=== PATIENT | female | born 1960 | race African-American/Black ===

== ENCOUNTER 2018-06-24 20:02 | Inpatient (IN) | payer MEDICARE, OTHER ==
[~2018-06-24] VITALS: Ht 154.9 cm; Wt 56.7 kg
--- NOTE | 2018-06-24 20:52 | NUR ---
PT PRESENTING TO ED WITH C/O KNEE PAIN S/P LT KNEE REPLACEMENT 3 DAYS PRIOR AT [facility]. PT IN BED. PT AAOX4. PT IS CALM AND COOPERATIVE. PT'S LUNG SOUNDS ARE CLEAR. PT'S BREATH SOUNDS ARE EVEN AND UNLABORED. B/S PRESENT IN ALL 4 QUADRANTS. PT'S CAP REFILLS ARE <3 SECS IN ALL FOUR EXTREMITIES. PT'S VISITOR AT BEDSIDE. PT IS POSITIONED FOR COMFORT W/ BED IN LOWEST POSITION W/ SIDERAILS UP. NO SIGNS OF DISTRESS WITNESSED AT THIS TIME.
[2018-06-24 21:17] LABS: BASOPHILS % (AUTO) 0.5 % (0.0-2.0); EOSINOPHILS # (AUTO) 0.1 K/uL (0.0-0.7); EOSINOPHILS % (AUTO) 0.9 % (0.0-7.0); HEMATOCRIT 27.2 % (31.2-41.9); LYMPHOCYTES # (AUTO) 2.3 K/uL (20.0-40.0); LYMPHOCYTES % (AUTO) 30.6 % (20.5-51.5); MEAN CORPUSCULAR HEMOGLOBIN 26.3 uug (24.7-32.8); MEAN CORPUSCULAR HGB CONC 33 g/dL (32.3-35.6); MEAN CORPUSCULAR VOLUME 79.8 fL (75.5-95.3); MONOCYTES # (AUTO) 0.4 K/uL (2.0-10.0); MONOCYTES % (AUTO) 5.6 % (0.0-11.0); NEUTROPHILS # (AUTO) 4.6 K/uL (1.8-8.9); NEUTROPHILS % (AUTO) 62.4 % (38.5-71.5); PLATELET COUNT (AUTO) 178 K/uL (179-408); RED BLOOD CELL COUNT(AUTO) 3.41 MIL/uL (3.63-4.92); WHITE BLOOD COUNT (AUTO) 7.4 K/uL (3.8-11.8)
[2018-06-24 21:19] LABS: CREATININE 0.7 mg/dL (0.6-1.3); POTASSIUM 3.6 mmol/L (3.5-5.1)
[2018-06-24 21:24] LABS: BILIRUBIN,DIRECT 0.1 mg/dL (0.0-0.2); BILIRUBIN,TOTAL 0.2 mg/dL (0.2-1.0); TOTAL PROTEIN, SERUM 7.1 g/dL (6.4-8.2)
[2018-06-24] MEDS ORDERED: VANCOMYCIN IV 1,000 MG in IV DEXTROSE 5% 250 ML IV ONE (21:30)
[2018-06-24] MEDS ORDERED: OXYCODONE/APAP 5-325 MG TABLET PO ONE (21:30)
[2018-06-24] MEDS ORDERED: POTA20PA3 PO (21:36)
[2018-06-24] MEDS ORDERED: LUBI24CA5 PO (21:36)
[2018-06-24] MEDS ORDERED: AMLO5TAB7 PO (21:36)
[2018-06-24] MEDS ORDERED: CARI350T PO (21:36)
[2018-06-24] MEDS ORDERED: LEVO40CA PO (21:36)
[2018-06-24] MEDS ORDERED: [UNRECOGNIZED DRUG - CODE] PO (21:36)
[2018-06-24] MEDS ORDERED: CYAN10009 PO (21:36)
[2018-06-24] MEDS ORDERED: OMEP40CA37 PO (21:36)
[2018-06-24] MEDS ORDERED: ZOLP10TA6 PO (21:36)
[2018-06-24] MEDS ORDERED: DIAZ10TA4 PO (21:36)
[2018-06-24] MEDS ORDERED: FLUT9.9S16 NS (21:36)
[2018-06-24] MEDS ORDERED: HYDR-4077 PO (21:36)
[2018-06-24] MEDS ORDERED: METH10TA2 PO (21:36)
[2018-06-24] MEDS ORDERED: LOSA100T15 PO (21:36)
[2018-06-24] MEDS ORDERED: ATOR40TA PO (21:36)
[2018-06-24] MEDS ORDERED: ONDA8TAB9 PO (21:36)
[2018-06-24] MEDS ORDERED: CELE200C PO (21:36)
[2018-06-24] MEDS ORDERED: APIX5TAB PO (21:36)
[2018-06-24] MEDS ORDERED: FURO-151 PO (21:36)
[2018-06-24] MEDS ORDERED: VANCOMYCIN IV 200 ML ONE (21:43)
[2018-06-24] MEDS ORDERED: OXYCODONE/APAP 5-325 MG TABLET ONE (21:43)
[2018-06-24] MEDS ORDERED: TEMAZEPAM 15 MG CAPSULE PO PRN (21:45)
[2018-06-24] MEDS ORDERED: HYDROMORPHONE 1 MG/1 ML DISP.SYRIN IV PRN (21:45)
[2018-06-24] MEDS ORDERED: ONDANSETRON 4 MG/2 ML VIAL IV PRN (21:45)
[2018-06-24] MEDS ORDERED: MAGNESIUM HYDROXIDE 30 ML LIQUID UDC PO PRN (21:45)
--- NOTE | 2018-06-24 22:01 | NUR ---
US TECH AT BEDSIDE
--- NOTE | 2018-06-24 22:10 | NUR ---
REPORT GIVEN TO [facility] NURSE, SHANDRA
--- NOTE | 2018-06-24 22:32 | NUR ---
DVT RULED OUT BY MD AFTER US
[2018-06-24] MEDS ORDERED: CEPHALEXIN MONOHYDRATE 500 MG CAPSULE ONE (22:39)
[2018-06-24] MEDS ORDERED: diphenhydrAMINE 50 MG/1 ML VIAL IV PRN (23:00)
[2018-06-24] MEDS ORDERED: diphenhydrAMINE 50 MG/1 ML VIAL ONE (23:05)
--- NOTE | 2018-06-24 23:10 | NUR ---
Pt. admitted to [facility], under care of Dr. MARTINEZ Belongs List completed
--- NOTE | 2018-06-24 23:15 | NUR ---
RECEIVED PATIENT VIA GURNEY FROM ER. PATIENT IS A/O X4. C/O PAIN UPON ARRIVAL TO FLOOR, STATING PERCOCET GIVEN IN ER WAS INEFFECTIVE. PATIENT IS S/P LEFT KNEE SURGERY THAT WAS DONE AT ANOTHER HOSPITAL 3 DAYS AGO. PATIENT HAS ROBERTO CARLOS AND DRESSING NOTED TO LEFT KNEE. SWELLING AND REDNESS NOTED TO LEFT LOWER EXTREMITY. PEDAL PULSE PRESENT AND NEUROVASCULAR CHECKS WNL. DRESSING REMOVED AND PICTURES TAKEN ON ADMISSION. DRY, STERILE DRESSING RE-APPLIED. VS WNL. HEPLOCK INTACT AND PATENT, NOTED TO RIGHT HAND #[id number] GAUGE. ORIENTED TO ROOM AND CALL LIGHT. CALL LIGHT IN REACH. ALL NEEDS ATTENDED. WILL CONTINUE TO MONITOR AND ASSESS.
[2018-06-24 23:25] VITALS: BP 127/74
[2018-06-24] MEDS: HYDROMORPHONE 2 MG/1 ML DISP.SYRIN IV PRN (23:35)
--- NOTE | 2018-06-24 23:35 | NUR ---
PATIENT GIVEN DILAUDID 1MG IV PER MAJOR CASE DETECTIVE. VS WNL. WILL CONTINUE TO MONITOR AND ASSESS.
[2018-06-24 23:42] LABS: *BILIRUBIN,URIN NEGATIVE (NEGATIVE); *BLOOD, URINE 1+ (NEGATIVE); *CLARITY,URINE CLEAR (CLEAR); *COLOR,URINE YELLOW (YELLOW); *KETONES,URINE NEGATIVE (NEGATIVE); *PROTEIN,URINE NEGATIVE (NEGATIVE); *UROBILINOGEN,URINE 0.2 E.U./dl (NORMAL); LEUKOCYTE ESTERASE ,URINE NEGATIVE (NEGATIVE); NITRITE, URINE NEGATIVE (NEGATIVE); UGLUCOSE NEGATIVE (NEGATIVE)
[2018-06-24 23:56] LABS: BACTERIA,URINE NONE SEEN /HPF (NONE SEEN); SQUAMOUS EPITHELIAL CELL,UR MODERATE /HPF (NONE SEEN); WBC,URINE 0-3 /HPF (0-3)
--- NOTE | 2018-06-25 00:10 | NUR ---
PATIENT RESTING IN BED. DENIES PAIN. DILAUDID EFFECTIVE. CALL LIGHT IN REACH. ALL NEEDS ATTENDED. ALL NEEDS ATTENDED. WILL CONTINUE TO MONITOR.
[2018-06-25 04:35] VITALS: BP 116/69
--- NOTE | 2018-06-25 05:05 | NUR ---
PATIENT AWAKE IN BED, C/O PAIN IN LEFT KNEE. PATIENT GIVEN DILAUDID 1MG IV PER TERRAZZO WORKER HELPER FOR PAIN. WILL CONTINUE TO MONITOR AND ASSESS.
[2018-06-25] MEDS: HYDROMORPHONE 2 MG/1 ML DISP.SYRIN IV PRN ×5 (05:06→19:07)
[2018-06-25 06:23] LABS: BASOPHILS % (AUTO) 0.6 % (0.0-2.0); EOSINOPHILS # (AUTO) 0.2 K/uL (0.0-0.7); HEMATOCRIT 22.6 % (31.2-41.9); HEMOGLOBIN 7.6 g/dL (10.9-14.3); LYMPHOCYTES # (AUTO) 2.7 K/uL (20.0-40.0); LYMPHOCYTES % (AUTO) 50.2 % (20.5-51.5); MEAN CORPUSCULAR HGB CONC 33 g/dL (32.3-35.6); MONOCYTES # (AUTO) 0.4 K/uL (2.0-10.0); MONOCYTES % (AUTO) 7.2 % (0.0-11.0); NEUTROPHILS # (AUTO) 2.1 K/uL (1.8-8.9); PLATELET COUNT (AUTO) 162 K/uL (179-408); RED BLOOD CELL COUNT(AUTO) 2.79 MIL/uL (3.63-4.92); WHITE BLOOD COUNT (AUTO) 5.3 K/uL (3.8-11.8)
[2018-06-25 06:34] LABS: BILIRUBIN,TOTAL 0.1 mg/dL (0.2-1.0); CREATININE 0.7 mg/dL (0.6-1.3); MAGNESIUM 1.8 mg/dL (1.8-2.4); POTASSIUM 3.3 mmol/L (3.5-5.1)
--- NOTE | 2018-06-25 06:44 | NUR ---
PATIENT AWAKE IN BED. SLEPT AT INTERVALS. DENIES PAIN. DRESSING INTACT. CALL LIGHT IN REACH. ALL NEEDS ATTENDED. WILL CONTINUE TO MONITOR AND ASSESS.
[2018-06-25 06:49] LABS: THYROID STIMULATING HORMONE 0.482 mIU/mL (0.358-3.740)
[2018-06-25] MEDS ORDERED: PANTOPRAZOLE SODIUM 40 MG TABLET.DR PO SCH (07:00)
[2018-06-25] MEDS: ACETAMINOPHEN 325 MG TABLET PO PRN (09:21)
[2018-06-25] MEDS ORDERED: POTASSIUM CHLORIDE 20 MEQ TAB.PRT.SR PO ONE (10:15)
[2018-06-25] MEDS: FERROUS SULFATE 325 MG TABEC PO SCH (10:24)
[2018-06-25 11:14] VITALS: BP 118/72
[2018-06-25 11:23] LABS: HEMATOCRIT 23.2 % (31.2-41.9); HEMOGLOBIN 7.8 g/dL (10.9-14.3)
[2018-06-25] MEDS ORDERED: APIXABAN 5 MG TABLET PO ONE (12:45)
--- NOTE | 2018-06-25 14:43 | NUR ---
CLINICAL PHARMACY NOTE: VANCOMYCIN PHARMACY TO DOSE Subjective: To start vancomycin in this 58 y/o female for indication of "suspected infection." Patient admitted with post-op swelling in leg after left knee replacement Objective: weight 56 kg height 154cm BUN 7 Scr 0.7 Wbc 5.3 temp 98 Assessment/Plan As renal function appears to be stable, will start regimen of vanco 750mg q14h for estimated trough of 16.9. First dose today at 1530. Will order trough before 4th scheduled dose (not ordered yet). Will dose per level if renal function were to change/become instable. Will follow
[2018-06-25 15:38] VITALS: BP 127/73
[2018-06-25] MEDS ORDERED: APIXABAN 5 MG TABLET PO SCH (16:00)
[2018-06-25] MEDS: VANCOMYCIN IV 750 MG in IV DEXTROSE 5% 250 ML IV SCH (16:12)
[2018-06-25 19:09] LABS: HEMOGLOBIN 8.2 g/dL (10.9-14.3)
[2018-06-25 20:19] VITALS: BP 132/76
--- NOTE | 2018-06-25 20:30 | NUR ---
PATIENT NOTED AMBULATING AROUND THE HALLWAY,AAOX4 . STEADY OF GAIT . NO DISTRESS NOTED BREATHING EVEN AND UNLABORED .
--- NOTE | 2018-06-25 21:15 | NUR ---
PATIENT ESCORTED BY SECURITY FOUND PATIENT DOWNSTAIRS IN THE LOADING /DOCK AREA ,SMOKING AREA.PATIENT ABLE TO AMBULATE WALKS SLOW BUT STEADY OF GAIT .BACK TO HER ROOM . EDUCATED /ADVISED PATIENT NOT TO GO DOWNSTAIR FOR SAFETY REASONS AND THAT THIS IS A NON SMOKING FACILITY TALK TO PATIENT SUGGEST ABOUT NICOTINE PATCH BUT SHE SAID IT DOESN'T WORK ,BUT WANTS VALIUM INSTEAD FOR HER ANXIETY .CALL LIGHT PLACED WITH IN REACH AND ADVISED TO CALL FOR ASSISTANCE AND NOT TO GO DOWNSTAIRS .PATIENT NOD HEAD AND VERBALIZED UNDERSTANDING .
[2018-06-25] MEDS: METHADONE HCL 10 MG TABLET PO SCH (21:59)
[2018-06-25] MEDS: AMLODIPINE 5 MG TABLET PO SCH (22:00)
--- NOTE | 2018-06-25 22:00 | NUR ---
REQUESTED FOR APPLESAUCE GIVEN ,TOLERATED ABLE TO FEED SELF.
[2018-06-25] MEDS: ZOLPIDEM 5 MG TABLET PO SCH (22:01)
[2018-06-25] MEDS: DIAZEPAM 10 MG TABLET PO PRN (23:18)
--- NOTE | 2018-06-26 00:15 | NUR ---
ESCORTED TO THE BATHROOM VOIDED . WOUND DRESSING DONE TO HER LEFT KNEE ,CLEANSE WITH NS PAT DRY AND PAINTED WITH BETADINE PLACE NON ADHERENT DRESSING COVER WITH TRANSPARENT DRESSING
[2018-06-26 03:25] LABS: HEMATOCRIT 26.2 % (31.2-41.9); HEMOGLOBIN 8.6 g/dL (10.9-14.3)
[2018-06-26] MEDS: VANCOMYCIN IV 750 MG in IV DEXTROSE 5% 250 ML IV SCH ×2 (04:43→20:00)
[2018-06-26 04:59] VITALS: BP 125/72
[2018-06-26] MEDS: HYDROMORPHONE 2 MG/1 ML DISP.SYRIN IV PRN ×5 (05:54→18:27)
--- NOTE | 2018-06-26 05:54 | NUR ---
PRN PAIN MEDICATION GIVEN PER REQUEST . FOR LEFT KNEE PAIN .SEE EMAR . EELVATED LEFT LEG WITH PILLOW .
[2018-06-26] MEDS: diphenhydrAMINE 25 MG CAP PO PRN ×2 (06:27→23:12)
--- NOTE | 2018-06-26 06:30 | NUR ---
PATIENT SLEPT ON AND OFF .ESCORTED PRN TO THE BATHROOM .
[2018-06-26 06:32] VITALS: BP 124/72
[2018-06-26 06:34] LABS: BASOPHILS % (AUTO) 0.6 % (0.0-2.0); EOSINOPHILS # (AUTO) 0.2 K/uL (0.0-0.7); EOSINOPHILS % (AUTO) 2.9 % (0.0-7.0); HEMATOCRIT 25.4 % (31.2-41.9); HEMOGLOBIN 8.5 g/dL (10.9-14.3); LYMPHOCYTES # (AUTO) 2.8 K/uL (20.0-40.0); LYMPHOCYTES % (AUTO) 44.2 % (20.5-51.5); MEAN CORPUSCULAR HEMOGLOBIN 27.2 uug (24.7-32.8); MEAN CORPUSCULAR HGB CONC 33 g/dL (32.3-35.6); MEAN CORPUSCULAR VOLUME 81.4 fL (75.5-95.3); MONOCYTES # (AUTO) 0.5 K/uL (2.0-10.0); MONOCYTES % (AUTO) 7.2 % (0.0-11.0); NEUTROPHILS # (AUTO) 2.9 K/uL (1.8-8.9); NEUTROPHILS % (AUTO) 45.1 % (38.5-71.5); PLATELET COUNT (AUTO) 197 K/uL (179-408); RED BLOOD CELL COUNT(AUTO) 3.11 MIL/uL (3.63-4.92); WHITE BLOOD COUNT (AUTO) 6.4 K/uL (3.8-11.8)
[2018-06-26 06:56] LABS: BILIRUBIN,TOTAL 0.2 mg/dL (0.2-1.0); CREATININE 0.6 mg/dL (0.6-1.3); MAGNESIUM 1.8 mg/dL (1.8-2.4); PHOSPHOROUS 3.8 mg/dL (2.5-4.9); POTASSIUM 3.9 mmol/L (3.5-5.1); TOTAL PROTEIN, SERUM 6.2 g/dL (6.4-8.2)
[2018-06-26 07:13] LABS: THYROID STIMULATING HORMONE 0.424 mIU/mL (0.358-3.740)
[2018-06-26] MEDS: PANTOPRAZOLE SODIUM 40 MG VIAL IV SCH (08:46)
[2018-06-26] MEDS: METHADONE HCL 10 MG TABLET PO SCH ×2 (08:46→21:39)
[2018-06-26] MEDS: FUROSEMIDE 40 MG TABLET PO SCH (08:47)
[2018-06-26] MEDS: CARISOPRODOL 350 MG TABLET PO SCH (08:47)
[2018-06-26] MEDS: POTASSIUM CHLORIDE 20 MEQ POWDER PACKET PO SCH (08:47)
[2018-06-26] MEDS: FERROUS SULFATE 325 MG TABEC PO SCH (08:47)
[2018-06-26] MEDS: CYANOCOBALAMIN 1,000 MCG TABLET PO SCH (08:47)
[2018-06-26] MEDS ORDERED: Medication Not On Formulary EA (Lubiprostone (Amitiza) 24 MCG) PO SCH (09:00)
[2018-06-26] MEDS ORDERED: LEVOMILNACIPRAN HYDROCHLORIDE 40 MG PO SCH (09:00)
[2018-06-26 11:16] VITALS: BP 127/89
--- NOTE | 2018-06-26 12:13 | NUR ---
CLINICAL PHARMACY NOTE: VANCOMYCIN PHARMACY TO DOSE Subjective: To continue vancomycin in this 58 y/o female for r/o left knee cellulitis Objective: weight 56 kg height 154cm BUN 6 Scr 0.6 Wbc 6.4 temp 98.2 Assessment/Plan Will continue same dose of vanco 750mg IVPB q14h for today. 3rd dose is due today at 1930. Will order trough before 4th scheduled dose (ordered for 06/27 at 0900). Will review the level in am & adjust the dose if needed. Will follow
[2018-06-26 15:46] VITALS: BP 138/90
[2018-06-26] MEDS: AMITIZA 24MCG PO SCH (18:22)
[2018-06-26 20:00] VITALS: BP 144/87
[2018-06-26] MEDS: ZOLPIDEM 5 MG TABLET PO SCH (21:40)
[2018-06-26] MEDS: AMLODIPINE 5 MG TABLET PO SCH (21:48)
[2018-06-26] MEDS: DIAZEPAM 10 MG TABLET PO PRN (21:52)
[2018-06-26] MEDS ORDERED: diphenhydrAMINE 50 MG/1 ML VIAL IV PRN (22:45)
[2018-06-27] MEDS: HYDROMORPHONE 2 MG/1 ML DISP.SYRIN IV PRN ×3 (03:25→13:50)
[2018-06-27 04:00] VITALS: BP 121/74
--- NOTE | 2018-06-27 07:00 | NUR ---
RECEIVED REPORT FROM ROBY HICKMAN. PATIENT IN BED ASLEEP NO ACUTE DISTRESS NOTED. WOUND DRESSING ON LEFT KNEE STILL INTACT, CLEAN AND DRY. IV ACCESS INTACT AND PATENT. NO INFILTRATION NOTED. WILL CONTINUE TO MONITOR CLOSELY.
[2018-06-27] MEDS: PANTOPRAZOLE SODIUM 40 MG VIAL IV SCH (08:33)
[2018-06-27] MEDS: POTASSIUM CHLORIDE 20 MEQ POWDER PACKET PO SCH (08:33)
[2018-06-27] MEDS: CYANOCOBALAMIN 1,000 MCG TABLET PO SCH (08:33)
[2018-06-27] MEDS: METHADONE HCL 10 MG TABLET PO SCH (08:34)
[2018-06-27] MEDS: FUROSEMIDE 40 MG TABLET PO SCH (08:34)
[2018-06-27] MEDS: AMITIZA 24MCG PO SCH (08:48)
[2018-06-27] MEDS: FERROUS SULFATE 325 MG TABEC PO SCH (08:49)
[2018-06-27] MEDS: CARISOPRODOL 350 MG TABLET PO SCH ×2 (09:00→10:12)
[2018-06-27] MEDS: ACETAMINOPHEN 325 MG TABLET PO PRN (09:01)
--- NOTE | 2018-06-27 10:46 | NUR ---
CLINICAL PHARMACY NOTE: VANCOMYCIN PHARMACY TO DOSE Subjective: To continue vancomycin in this 58 y/o female for r/o left knee cellulitis Objective: weight 56 kg height 154cm BUN 6 (06/26) Scr 0.6 (06/26) Wbc 6.4 (06/26) temp 98.2 vanco trough level: 7 Assessment/Plan Since vanco trough level is sub-therapeutic, will change vanco dose from 750mg IVPB q14h to 1gm IVPB q11h. 1st dose is due today at 1100. Will order trough before 4th scheduled dose (not yet ordered). Will review the level in am & adjust the dose if needed. Will follow
[2018-06-27] MEDS ORDERED: VANCOMYCIN IV 1 G in PREMIXED 0 EACH IV SCH (11:00)
[2018-06-27 11:23] VITALS: BP 137/82
[2018-06-27] MEDS ORDERED: DIAZ10TA4 PO (12:24)
[2018-06-27] MEDS ORDERED: DOXY100T2 PO (12:24)
[2018-06-27] MEDS ORDERED: ACET325T53 PO (12:24)
[2018-06-27] MEDS ORDERED: DIPH25TA27 PO (12:24)
[2018-06-27] MEDS ORDERED: ONDA4TAB5 PO (12:25)
[2018-06-27] MEDS ORDERED: FERR325T28 PO (12:25)
[2018-06-27] MEDS ORDERED: PANT40TA2 PO (12:25)
[2018-06-27] MEDS ORDERED: HYDR-548 PO (12:25)
--- NOTE | 2018-06-27 15:06 | NUR ---
PATIENT DISCHARGED IN STABLE CONDITION TO ARU. REPORT GIVEN TO DANYELLE HICKMAN. DISCHARGE PAPERS AND INSTRUCTIONS GIVEN AND EXPLAINED TO PATIENT. PATIENT REFUSED TO SIGN BELONGINGS LIST. ENDORSED TO ARU. IV ACCESS REMOVED. TRANSFERRED PATIENT TO ARU VIA WHEELCHAIR BY CANDIE CASTRO
[2018-06-27] MEDS ORDERED: LEVO40CA PO (15:52)
[2018-06-27] MEDS ORDERED: OXYC-133 PO (15:52)
[2018-06-27] MEDS ORDERED: FLUT5.9S NS (15:52)
[2018-06-27] MEDS ORDERED: MAGN400O6 PO (15:52)
[2018-06-27] MEDS ORDERED: DOXYCYCLINE HYCLATE 100 MG TABLET PO SCH (21:00)
[2018-06-28] MEDS ORDERED: FERROUS SULFATE 325 MG TABEC PO SCH (11:00)
== END 2018-06-27 15:00 | DRG 300 ==
LOC: ER 20:03 → MED 22:34
PROVIDERS: ADMIT Internal Medicine; ATTEND Internal Medicine
DX: I80.02 Phlebitis and thrombophlebitis of superficial vessels of left lower extremity (principal); L03.116 Cellulitis of left lower limb; E44.0 Moderate protein-calorie malnutrition; Z88.1 Allergy status to other antibiotic agents; Z88.2 Allergy status to sulfonamides; E78.5 Hyperlipidemia, unspecified; D69.6 Thrombocytopenia, unspecified; D50.9 Iron deficiency anemia, unspecified; Z68.23 Body mass index [BMI] 23.0-23.9, adult; G89.29 Other chronic pain; Z86.718 Personal history of other venous thrombosis and embolism; Z79.01 Long term (current) use of anticoagulants; Z90.710 Acquired absence of both cervix and uterus; Z82.49 Family history of ischemic heart disease and other diseases of the circulatory system; Z82.0 Family history of epilepsy and other diseases of the nervous system; Z80.3 Family history of malignant neoplasm of breast; Z80.0 Family history of malignant neoplasm of digestive organs; E87.6 Hypokalemia; I10 Essential (primary) hypertension; Z96.652 Presence of left artificial knee joint
CPT/HCPCS: 36415; 71045; 83550; 83735; 84100; 84443; 85018; 85025; 85730; 86850; 86900; 86901; 86920; 87086; 93005; 97116; 97165; 97530; A4663; C9113; J1170; J1200; J3370; J7050; J7060; Q0163

== ENCOUNTER 2018-06-27 15:12 | Inpatient (IN) | payer MEDICARE, OTHER ==
[~2018-06-27] VITALS: Ht 154.9 cm; Wt 56.7 kg
[~2018-06-27 15:12] MED LIST: ACET325T53 PO; AMLO5TAB7 PO; APIX5TAB PO; ATOR40TA PO; CARI350T PO; CELE200C PO; CYAN10009 PO; DIAZ10TA4 PO; DIPH25TA27 PO; DOXY100T2 PO; FERR325T28 PO; FLUT9.9S16 NS; FURO-151 PO; HYDR-4077 PO; HYDR-548 PO; LEVO40CA PO; LOSA100T15 PO; LUBI24CA5 PO; METH10TA2 PO; OMEP40CA37 PO; ONDA4TAB5 PO; ONDA8TAB9 PO; PANT40TA2 PO; POTA20PA3 PO; ZOLP10TA6 PO; [UNRECOGNIZED DRUG - CODE] PO
--- NOTE | 2018-06-27 15:30 | NUR ---
Nurse Notes: Admitted patient from [facility] unit, transported by staff via wheelchair with no SOB or distress, denies any pain at this time. Routine admission questions done, reviewed medication, oriented patient to the unit, room, use of call light, telephone and hourly rounding. Safety precautions observed. called Dr. Peace and Dr. Starr informed of the admission. MRSA of the nares swab done, specimen sent to the lab as ordered. patient refused picture to be taken on her left knee incision. Explained the importance of the picture taking but still patient refused at this time. Will continue to monitor.
[2018-06-27] MEDS ORDERED: Z GUARD REMEDY PASTE 57 GM TUBE TOP PRN (15:45)
[2018-06-27] MEDS ORDERED: LEVO40CA PO (15:52)
[2018-06-27] MEDS ORDERED: OXYC-133 PO (15:52)
[2018-06-27] MEDS ORDERED: MAGN400O6 PO (15:52)
[2018-06-27] MEDS ORDERED: FLUT5.9S NS (15:52)
[2018-06-27 16:01] VITALS: BP 130/77
[2018-06-27] MEDS ORDERED: FLUTICASONE PROP NASAL SPRAY 16 GM BOTTLE NS PRN (16:30)
[2018-06-27] MEDS ORDERED: MAGNESIUM HYDROXIDE 30 ML LIQUID UDC PO PRN (16:45)
[2018-06-27] MEDS ORDERED: ONDANSETRON HCL 4 MG TABLET PO PRN (16:45)
[2018-06-27] MEDS ORDERED: ACETAMINOPHEN 325 MG TABLET PO PRN (16:45)
[2018-06-27] MEDS ORDERED: DIAZEPAM 10 MG TABLET PO PRN (16:45)
[2018-06-27] MEDS ORDERED: diphenhydrAMINE 25 MG CAP PO PRN (16:45)
[2018-06-27] MEDS ORDERED: HYDROCODONE/APAP 10-325 MG TABLET PO PRN (16:45)
[2018-06-27] MEDS: hydrALAZINE HCL 50 MG TABLET PO SCH (17:35)
--- NOTE | 2018-06-27 17:52 | NUR ---
Nurse Notes: Patient continued to refuse for the pictures to be taken on her left knee and left lower leg. Explained the importance still patient adamantly refused. safety precautions observed. Encouraged patient to use call light whenever assistance is needed. Will continue to monitor. Will endorse accordingly to the next shift for continuity of care.
[2018-06-27] MEDS ORDERED: DIAZEPAM 5 MG TABLET PO PRN (18:45)
[2018-06-27] MEDS: OXYCODONE HCL 5 MG TABLET PO PRN (19:38)
--- NOTE | 2018-06-27 19:51 | NUR ---
Pt is awake and laying supine in bed . Pt is c/o pain , 10 / 10 in the back and leg . Pt given pain medication . No other signs of distress . All safety precautions observed for pt in the room .
[2018-06-27] MEDS: AMLODIPINE 5 MG TABLET PO SCH (21:00)
[2018-06-27] MEDS: DOXYCYCLINE HYCLATE 100 MG TABLET PO SCH (21:00)
[2018-06-27] MEDS ORDERED: METHADONE HCL 10 MG TABLET PO SCH (21:00)
[2018-06-27] MEDS: METHADONE HCL 10 MG TABLET PO SCH (21:01)
[2018-06-27 21:06] VITALS: BP 133/87
[2018-06-27] MEDS ORDERED: CYCLOBENZAPRINE HCL 10 MG TABLET ONE (21:56)
[2018-06-27] MEDS: CYCLOBENZAPRINE HCL 10 MG TABLET PO PRN (22:00)
[2018-06-27] MEDS: ZOLPIDEM 5 MG TABLET PO SCH (22:56)
[2018-06-27] MEDS: DIAZEPAM 5 MG TABLET PO PRN (22:57)
[2018-06-28] MEDS: OXYCODONE HCL 5 MG TABLET PO PRN ×3 (04:28→16:59)
[2018-06-28] MEDS: METHADONE HCL 10 MG TABLET PO SCH ×3 (06:37→21:19)
[2018-06-28 06:57] VITALS: BP 142/86
[2018-06-28] MEDS: POTASSIUM CHLORIDE 20 MEQ POWDER PACKET PO SCH (08:28)
[2018-06-28] MEDS: PANTOPRAZOLE SODIUM 40 MG TABLET.DR PO SCH (08:29)
[2018-06-28] MEDS: LOSARTAN POTASSIUM 50 MG TABLET PO SCH (08:29)
[2018-06-28] MEDS: FUROSEMIDE 40 MG TABLET PO SCH (08:29)
[2018-06-28] MEDS: DOXYCYCLINE HYCLATE 100 MG TABLET PO SCH ×2 (08:29→20:42)
[2018-06-28] MEDS: hydrALAZINE HCL 50 MG TABLET PO SCH ×2 (08:29→16:58)
[2018-06-28] MEDS: AMITIZA 24MCG PO SCH (08:30)
[2018-06-28] MEDS: CYANOCOBALAMIN 1,000 MCG TABLET PO SCH (08:30)
[2018-06-28] MEDS ORDERED: LEVOMILNACIPRAN HYDROCHLORIDE 40 MG PO SCH (09:00)
[2018-06-28] MEDS ORDERED: Medication Not On Formulary EA (Lubiprostone (Amitiza) 24 MCG) PO SCH (09:00)
[2018-06-28] MEDS ORDERED: APIXABAN 5 MG TABLET PO SCH (09:00)
[2018-06-28] MEDS ORDERED: LEVOMILNACIPRAN 40 MG PO SCH (09:00)
[2018-06-28] MEDS ORDERED: CARISOPRODOL 350 MG TABLET PO SCH (09:00)
[2018-06-28] MEDS ORDERED: Medication Not On Formulary EA (Losartan Potassium 100 MG) PO SCH (09:00)
[2018-06-28] MEDS: FERROUS SULFATE 325 MG TABEC PO SCH (10:58)
[2018-06-28] MEDS: CYCLOBENZAPRINE HCL 10 MG TABLET PO PRN (11:18)
--- NOTE | 2018-06-28 11:57 | NUR ---
Patient continue on pain management. Complaint of back and left knee pain. oxyvir 10mg PRN every 6 hours given. Complaint of pain from oje wound from EKG leads from other hospital. Referred for wound consult. will check by the wound nurse charlene 06/29/18. CPM machine ordered by MD Lees. tolerated well. will continue monitor
--- NOTE | 2018-06-28 16:38 | NUR ---
CPM machine given for 2 hours by th the PT with -3 and 50 flex. will continue monitor
[2018-06-28] MEDS ORDERED: FLUTICASONE PROP NASAL SPRAY 16 GM BOTTLE NS PRN ×2 (18:15)
[2018-06-28 18:56] VITALS: BP 128/62
[2018-06-28 20:10] VITALS: BP 94/57
[2018-06-28] MEDS: AMLODIPINE 5 MG TABLET PO SCH (20:46)
[2018-06-28] MEDS: ZOLPIDEM 5 MG TABLET PO SCH ×2 (21:00→22:48)
[2018-06-28] MEDS: DIAZEPAM 5 MG TABLET PO PRN (22:47)
--- NOTE | 2018-06-28 22:50 | NUR ---
Patient requested Ambien and Valium at the same time. I told patient that I am not comfortable giving them at the same time because of the reason that they have the same effect/action. Patient became upset and she starts yelling and reasoning with her high tone of voice. She's very rude, and mean.
[2018-06-29] MEDS: OXYCODONE HCL 5 MG TABLET PO PRN ×3 (02:00→17:31)
[2018-06-29] MEDS: METHADONE HCL 10 MG TABLET PO SCH ×3 (05:40→21:02)
[2018-06-29 05:56] VITALS: BP 112/78
--- NOTE | 2018-06-29 06:40 | NUR ---
Shift End Report: Slept in between care. Patient been difficult to deal with, hard to please, insisting always what she wants that sometimes it is not appropriate or right. Argumentative, rude, mean, needy and provoking. She is pain seeker, claiming her pain meds are not adequate to relieve her pain and needs some adjusting in frequency. Will endorse to oncoming shift. Tolerating CPM. All needs attended and met. Continue current rehab plan of care.
--- NOTE | 2018-06-29 08:14 | NUR ---
Patient noted laying bed, no complaints of pain at this time, call light in reach, bed locked and in lowest position, all needs met at this time
[2018-06-29 09:00] VITALS: BP 110/63
[2018-06-29] MEDS: PANTOPRAZOLE SODIUM 40 MG TABLET.DR PO SCH (09:03)
[2018-06-29] MEDS: CYANOCOBALAMIN 1,000 MCG TABLET PO SCH (09:03)
[2018-06-29] MEDS: hydrALAZINE HCL 50 MG TABLET PO SCH ×2 (09:03→17:31)
[2018-06-29] MEDS: DOXYCYCLINE HYCLATE 100 MG TABLET PO SCH ×2 (09:03→20:18)
[2018-06-29] MEDS: LOSARTAN POTASSIUM 50 MG TABLET PO SCH (09:03)
[2018-06-29] MEDS: AMITIZA 24MCG PO SCH (09:04)
[2018-06-29] MEDS: FUROSEMIDE 40 MG TABLET PO SCH (09:04)
[2018-06-29] MEDS: POTASSIUM CHLORIDE 20 MEQ POWDER PACKET PO SCH (09:04)
[2018-06-29] MEDS: CYCLOBENZAPRINE HCL 10 MG TABLET PO PRN ×2 (12:10→19:31)
[2018-06-29] MEDS: FERROUS SULFATE 325 MG TABEC PO SCH (12:12)
--- NOTE | 2018-06-29 12:41 | NUR ---
WOUND CARE CONSULT: PT SEEN FOR RED ITCHY AREAS ON BILATERAL CHEST FROM PREVIOUS FACILITY, PRESENT ON ADMISSION. PER PT REPORT, HEART MONITOR LEADS WERE LEFT ON FOR SOME TIME AND WHEN THEY WERE REMOVED, RED AREAS NOTED. DEFER TO MD/NASIR. NO OPEN WOUNDS NOTED TO CHEST. WILL SEE PRN. Addendum: 06/29/18 at 1244 by SACHI DIALLO RN Amended: Links added.
[2018-06-29] MEDS ORDERED: TRIAMCINOLONE ACET 0.5% CREAM 15 GM TUBE TP SCH (13:00)
[2018-06-29] MEDS ORDERED: TRIAMCINOLONE ACETONIDE 0.1% 60 ML LOTION BOTTLE TOP SCH (13:00)
[2018-06-29] MEDS: TRIAMCINOLONE ACET 0.1% CREAM 15 GM TUBE TP SCH (13:04)
[2018-06-29 15:00] VITALS: BP 114/70
--- NOTE | 2018-06-29 18:34 | NUR ---
Excedrin ordered for this patient for complaints of headache, will administer.
--- NOTE | 2018-06-29 18:37 | NUR ---
Dressing on left knee changed, picture placed in chart. Pictures of rash to chest from EKG electrodes taken and placed in chart.
[2018-06-29] MEDS: ASPIRIN/ACETAMINOPHEN/CAFFEINE TABLET PO PRN (18:50)
--- NOTE | 2018-06-29 19:20 | NUR ---
Received patient sitting on the side of the bed, on the phone talking to family member. Patient AAOX4. In no acute distress. VS WNL. Needs assessed and attended to. Safety measure initiated and call booker within reach.
[2018-06-29 19:59] VITALS: BP 127/67
[2018-06-29] MEDS: AMLODIPINE 5 MG TABLET PO SCH (20:20)
[2018-06-29] MEDS: ZOLPIDEM 5 MG TABLET PO SCH (22:29)
--- NOTE | 2018-06-29 22:29 | NUR ---
Gave patient due Ambien for tonight as non-schedule medication.
[2018-06-29] MEDS: DIAZEPAM 5 MG TABLET PO PRN (23:47)
[2018-06-30] MEDS: OXYCODONE HCL 5 MG TABLET PO PRN ×4 (01:57→22:57)
[2018-06-30] MEDS: CYCLOBENZAPRINE HCL 10 MG TABLET PO PRN ×2 (03:34→17:16)
[2018-06-30] MEDS: ASPIRIN/ACETAMINOPHEN/CAFFEINE TABLET PO PRN ×2 (04:59→13:49)
[2018-06-30 05:03] VITALS: BP 118/71
[2018-06-30] MEDS: METHADONE HCL 10 MG TABLET PO SCH ×3 (06:02→21:04)
--- NOTE | 2018-06-30 06:09 | NUR ---
Patient AAOX4. In no acute distress. VS WNL. Ambulate ad [place] with cane. Given Oxycodone PRN per order for breakthrough pain on left knee. Ice compress also provided on affected area. Needs attended to and met. Safety measure maintained and call booker within reach.
[2018-06-30] MEDS: CYANOCOBALAMIN 1,000 MCG TABLET PO SCH (08:20)
[2018-06-30] MEDS: PANTOPRAZOLE SODIUM 40 MG TABLET.DR PO SCH (08:21)
[2018-06-30] MEDS: FUROSEMIDE 40 MG TABLET PO SCH (08:21)
[2018-06-30] MEDS: DOXYCYCLINE HYCLATE 100 MG TABLET PO SCH ×2 (08:21→21:04)
[2018-06-30] MEDS: hydrALAZINE HCL 50 MG TABLET PO SCH ×2 (08:21→17:16)
[2018-06-30] MEDS: POTASSIUM CHLORIDE 20 MEQ POWDER PACKET PO SCH (08:22)
[2018-06-30] MEDS: AMITIZA 24MCG PO SCH (08:22)
[2018-06-30] MEDS: LOSARTAN POTASSIUM 50 MG TABLET PO SCH (08:22)
[2018-06-30] MEDS: TRIAMCINOLONE ACET 0.1% CREAM 15 GM TUBE TP SCH (08:23)
[2018-06-30 09:00] VITALS: BP 132/75
--- NOTE | 2018-06-30 10:15 | NUR ---
Patient noted resting in bed, complaint of back pain 07/27, no signs of distress noted, oxycodone given at 0800, vitals WNL, call light in reach, bed locked and in lowest position, all needs met at this time
[2018-06-30] MEDS: FERROUS SULFATE 325 MG TABEC PO SCH ×3 (11:00→11:45)
--- NOTE | 2018-06-30 13:52 | NUR ---
INTERDISCIPLINARY TEAM CONFERENCE
[2018-06-30 17:20] VITALS: BP 111/72
[2018-06-30 20:15] VITALS: BP 98/62
[2018-06-30] MEDS: AMLODIPINE 5 MG TABLET PO SCH (20:51)
[2018-06-30] MEDS: ZOLPIDEM 5 MG TABLET PO SCH (22:55)
[2018-06-30] MEDS: DIAZEPAM 5 MG TABLET PO PRN (22:56)
[2018-07-01] MEDS: CYCLOBENZAPRINE HCL 10 MG TABLET PO PRN ×3 (02:59→18:29)
[2018-07-01] MEDS: OXYCODONE HCL 5 MG TABLET PO PRN ×3 (05:08→17:25)
[2018-07-01 05:42] VITALS: BP 119/70
[2018-07-01] MEDS: METHADONE HCL 10 MG TABLET PO SCH ×3 (06:48→22:52)
--- NOTE | 2018-07-01 07:30 | NUR ---
Received pt. in bed awake. A/OX4 able to make needs known. Pt. in no acute distress, responsive to verbal and tactile stimuli. Respiration equal and unlabored, clear upon auscultation. Lt. knee surgical incision covered with surgical dressing C/D/I. Pt. ambulatory with use of single point cane. Safety measures in placed. 2X upper SR up as enabler and for bed positioning. Pt. with c/o pain on Lt. knee 06/27 will medicate as directed and monitor. Repositioned pt. for comfort. Encouraged pt. use of CPM. Call light and all frequently used items in placed. Will continue to monitor accordingly
[2018-07-01 08:00] VITALS: BP 111/79
[2018-07-01] MEDS: CYANOCOBALAMIN 1,000 MCG TABLET PO SCH (08:44)
[2018-07-01] MEDS: FUROSEMIDE 40 MG TABLET PO SCH (08:44)
[2018-07-01] MEDS: PANTOPRAZOLE SODIUM 40 MG TABLET.DR PO SCH (08:44)
[2018-07-01] MEDS: DOXYCYCLINE HYCLATE 100 MG TABLET PO SCH ×2 (08:44→20:56)
[2018-07-01] MEDS: AMITIZA 24MCG PO SCH (08:47)
[2018-07-01] MEDS: TRIAMCINOLONE ACET 0.1% CREAM 15 GM TUBE TP SCH (08:48)
[2018-07-01] MEDS: POTASSIUM CHLORIDE 20 MEQ POWDER PACKET PO SCH (08:59)
[2018-07-01] MEDS: LOSARTAN POTASSIUM 50 MG TABLET PO SCH (10:23)
[2018-07-01] MEDS: hydrALAZINE HCL 50 MG TABLET PO SCH ×2 (10:23→17:00)
--- NOTE | 2018-07-01 13:16 | NUR ---
INTERDISCIPLINARY TEAM CONFERENCE
[2018-07-01 16:00] VITALS: BP 104/60
--- NOTE | 2018-07-01 16:06 | NUR ---
Order received from Dr. Jara for Lt. knee x-ray for f/u appointment with ortho (Dr. Lees). Orders noted and carried out. Pt. made aware.
--- NOTE | 2018-07-01 18:30 | NUR ---
Received an order from Dr. Peace that it is ok to give third dose of flexeril for the day.
[2018-07-01 20:00] VITALS: BP 100/65
--- NOTE | 2018-07-01 20:15 | NUR ---
Patient received at bed. AAO X4. Able to make needs known. No sign of acute distress or SOB was noted. On room air with O2 sat 98%. All safety measures maintained. Bed is on low position, brake and alarm are on. Call light and personal belongings within reach. Continue to monitor.
[2018-07-01] MEDS: AMLODIPINE 5 MG TABLET PO SCH (20:55)
[2018-07-01] MEDS: ZOLPIDEM 5 MG TABLET PO SCH (20:56)
--- NOTE | 2018-07-01 21:40 | NUR ---
Amlodipine 5 mg was held because the patient has low BP 100/65. Continue to monitor.
[2018-07-01] MEDS: ASPIRIN/ACETAMINOPHEN/CAFFEINE TABLET PO PRN (23:25)
[2018-07-02] MEDS: DIAZEPAM 5 MG TABLET PO PRN ×2 (00:07→23:14)
[2018-07-02] MEDS: ASPIRIN/ACETAMINOPHEN/CAFFEINE TABLET PO PRN ×3 (05:57→20:57)
[2018-07-02] MEDS: OXYCODONE HCL 5 MG TABLET PO PRN ×3 (06:09→18:26)
--- NOTE | 2018-07-02 06:20 | NUR ---
Patient refused to take methadone HCL 10 mg at 0600. She wants to take it later. risk and benefits explained. continue to monitor and will endorse to the day shift nurse.
--- NOTE | 2018-07-02 06:32 | NUR ---
End of shift note, Patient remained stable throughout the shift. No acute distress or SOB was noted. Pain assessed and reassessed after pain medication. All medication given as ordered. Ice bag provided as patient request. All needs attended promptly. Safety measures maintained. Keep her clean and comfortable. Bed in low position, alarm and brake on. Call light and personal belongings within reach. Continue to monitor and will endorse to day shift nurse.
[2018-07-02 06:38] VITALS: BP 106/67
--- NOTE | 2018-07-02 07:42 | NUR ---
Patient request for Excedrin ES and then refused to take it. The medication was already opened, therefore the medication was discarded. endorsed to the day shift nurse.
[2018-07-02 08:14] VITALS: BP 111/67
[2018-07-02 08:23] VITALS: BP 116/70
[2018-07-02] MEDS: DOXYCYCLINE HYCLATE 100 MG TABLET PO SCH ×2 (08:25→20:55)
[2018-07-02] MEDS: CYANOCOBALAMIN 1,000 MCG TABLET PO SCH (08:26)
[2018-07-02] MEDS: FUROSEMIDE 40 MG TABLET PO SCH (08:26)
[2018-07-02] MEDS: LOSARTAN POTASSIUM 50 MG TABLET PO SCH (08:26)
[2018-07-02] MEDS: PANTOPRAZOLE SODIUM 40 MG TABLET.DR PO SCH (08:26)
[2018-07-02] MEDS: hydrALAZINE HCL 50 MG TABLET PO SCH ×2 (08:26→16:51)
[2018-07-02] MEDS: AMITIZA 24MCG PO SCH (08:27)
[2018-07-02] MEDS: TRIAMCINOLONE ACET 0.1% CREAM 15 GM TUBE TP SCH (08:29)
[2018-07-02] MEDS: METHADONE HCL 10 MG TABLET PO SCH ×3 (08:34→21:03)
[2018-07-02] MEDS: POTASSIUM CHLORIDE 20 MEQ POWDER PACKET PO SCH (08:37)
--- NOTE | 2018-07-02 08:50 | NUR ---
Received report from previous shift pt. had requested to take methadone around 8AM, R&B x3 discussed with pt. Received pt. in bed with eyes open. A/OX4 with capacity to make decision able to make her needs know. Pt. stated "I want my methadone at around 8 AM." C/O 05/27 of lt. knee pain and headache. No SOB or increase WOB noted. No changes in mentation. Denies chest pain or chest tightness. LT. knee covered with clean dry dressing, C/D/I. Repositioned pt. for comfort. Provided pt. with ice pack to Lt. knee for pain relief. Pt. aware of upcoming discharge today 07/02 no question or concerns at this time. All due medications given and tolerated well. Will continue to monitor accordingly.
[2018-07-02] MEDS: FERROUS SULFATE 325 MG TABEC PO SCH (10:24)
--- NOTE | 2018-07-02 11:00 | NUR ---
Obtained and received discharge orders from Dr. Peace. Orders noted and carried out. Pt. made aware and amenable.
[2018-07-02] MEDS: CYCLOBENZAPRINE HCL 10 MG TABLET PO PRN ×2 (11:31→22:22)
--- NOTE | 2018-07-02 15:32 | NUR ---
Discharge instructions given to patient. Medication prescriptions given to patient. Informed about follow up with Dr. Lees on July 06, 2018. Patient refused to sign discharge papers. Patient said she in not willing to go home without having Methadone medications. Informed Dr. Peace, and Dr said additional prescriptions will be sent through his office to her pharmacy on Wednesday so that patient can pick it up.
[2018-07-02 16:04] VITALS: BP 115/67
--- NOTE | 2018-07-02 18:28 | NUR ---
Pt. refused to discharged today (07/02/18) due to not having medications (narcotics) on-hand. Prescription for narcotics prepared by Dr. Peace. Educated pt. that prescription will be provided upon discharge but pt. strongly insist on having meds prior to discharge. Dr. Peace aware of the situation. Requested bath house attendant for assistance. electrician constructor supervisor by pt bedside. energy scheduler notified as well. Pt. still insisted in staying after educating pt. on procedure for proper discharge. Prescription sent to [facility] ([place]) for refill, will be ready by AM for pt mushroom picker. Discharge postponed for tomorrow. Discharge order for today d/c per MD's order. Pt. made aware of continuation of stay, agreeable for discharge tomorrow. Pt. remain in stable condition with c/o 8-9/10 p.s on Lt. knee, relieved by pain meds as ordered. Repositioned pt. for comfort. All safety measures kept in placed. Call light and all frequently used items within pt. reach. Discharge packet to be endorsed. Will endorse to oncoming shift.
[2018-07-02 20:00] VITALS: BP 108/67
[2018-07-02] MEDS: ZOLPIDEM 5 MG TABLET PO SCH (20:54)
[2018-07-02] MEDS: AMLODIPINE 5 MG TABLET PO SCH (20:55)
--- NOTE | 2018-07-02 21:37 | NUR ---
Received pt resting in bed and watching TV. AAO x4. No acute distress noted. C/o pain on the left hip, routine pain med given. Held Norvasc due to decreased BP 108/67. Safety measures maintained. Bed alarm on. Call light and personal belongings within reach. Will continue to monitor.
--- NOTE | 2018-07-02 22:32 | NUR ---
Notified Dr. Peace @ 2204 regarding pt's muscle spasm. Pt asking for her Flexeril when it is not due yet stating that she has back muscle spasm and wanted to tell Dr. Peace. responded back at 2217 and gave an order to give it now. Will continue to monitor.
[2018-07-02 23:11] VITALS: BP 114/62
[2018-07-03] MEDS: OXYCODONE HCL 5 MG TABLET PO PRN ×2 (03:00→09:15)
[2018-07-03 05:00] VITALS: BP 111/68
[2018-07-03] MEDS: METHADONE HCL 10 MG TABLET PO SCH (06:25)
[2018-07-03 08:00] VITALS: BP 122/81
[2018-07-03] MEDS: PANTOPRAZOLE SODIUM 40 MG TABLET.DR PO SCH (09:04)
[2018-07-03] MEDS: FUROSEMIDE 40 MG TABLET PO SCH (09:04)
[2018-07-03] MEDS: DOXYCYCLINE HYCLATE 100 MG TABLET PO SCH (09:04)
[2018-07-03] MEDS: CYANOCOBALAMIN 1,000 MCG TABLET PO SCH (09:04)
[2018-07-03] MEDS: POTASSIUM CHLORIDE 20 MEQ POWDER PACKET PO SCH (09:05)
[2018-07-03] MEDS: AMITIZA 24MCG PO SCH (09:06)
[2018-07-03] MEDS: TRIAMCINOLONE ACET 0.1% CREAM 15 GM TUBE TP SCH (09:06)
[2018-07-03 09:07] VITALS: BP 122/81
[2018-07-03] MEDS: LOSARTAN POTASSIUM 50 MG TABLET PO SCH (09:07)
[2018-07-03] MEDS: hydrALAZINE HCL 50 MG TABLET PO SCH (09:07)
[2018-07-03] MEDS: FERROUS SULFATE 325 MG TABEC PO SCH (11:15)
--- NOTE | 2018-07-03 13:45 | NUR ---
Pt discharged in no distress, no complaints, all education provided, as well as follow-up appointments, will notify Dr. Peace to send e-scripts for to the pharmacy, patient will use. Patient has all her belongings and were checked accurately, all medications that patient has and requested were sent to her as well, patient was encouraged to ask questions and she has none. Discharged via gurney per transport.
== END 2018-07-03 14:00 | disposition home health service (06) | DRG 560 ==
PROVIDERS: ADMIT Physical Medicine & Rehabilitation Pain Medicine; ATTEND Physical Medicine & Rehabilitation Pain Medicine
DX: Z47.1 Aftercare following joint replacement surgery (principal); E44.0 Moderate protein-calorie malnutrition; L03.116 Cellulitis of left lower limb; Z96.652 Presence of left artificial knee joint; I80.02 Phlebitis and thrombophlebitis of superficial vessels of left lower extremity; E11.9 Type 2 diabetes mellitus without complications; E78.00 Pure hypercholesterolemia, unspecified; I10 Essential (primary) hypertension; Z90.710 Acquired absence of both cervix and uterus; R26.81 Unsteadiness on feet; G89.29 Other chronic pain; D64.9 Anemia, unspecified; F32.9 Major depressive disorder, single episode, unspecified; G43.909 Migraine, unspecified, not intractable, without status migrainosus; Z86.718 Personal history of other venous thrombosis and embolism; Z88.1 Allergy status to other antibiotic agents; Z88.2 Allergy status to sulfonamides; M54.5 Low back pain
CPT/HCPCS: 92526; 92610; 97110; 97116; 97530; 97535; A4663; A9150; J3535; Q0163